=== PATIENT | female | born 1990 | race Caucasian/White ===

== ENCOUNTER 2017-12-06 10:45 | Outpatient (CLI) | payer OTHER ==
[~2017-12-06] VITALS: Ht 154.9 cm; Wt 84.1 kg
[2017-12-06 11:31] LABS: MICROSCOPIC NOT IND
[2017-12-06 11:34] VITALS: BP 127/7
[2017-12-06] MEDS ORDERED: PREN1TAB10 PO (12:01)
== END 2017-12-06 12:17 | disposition home or self-care (01) ==
LOC: LDOP 10:45
PROVIDERS: ATTEND Obstetrics & Gynecology
DX: O26.892 Other specified pregnancy related conditions, second trimester (principal); R10.2 Pelvic and perineal pain; Z3A.27 27 weeks gestation of pregnancy
CPT/HCPCS: 59025; 81003; 87086; 99201; G0463

== ENCOUNTER 2018-03-05 16:24 | Inpatient (IN) | payer OTHER ==
[~2018-03-05] VITALS: Ht 157.5 cm; Wt 90.0 kg
[~2018-03-05 16:24] MED LIST: PREN1TAB10 PO
[2018-03-08] MEDS ORDERED: D5%-LACTATED RINGERS 1,000 ML IV SCH (06:11)
[2018-03-08] MEDS ORDERED: OXYTOCIN 30U/ 0.9% NaCL 500ML 500 ML IV ONE (06:11)
[2018-03-08] MEDS ORDERED: OXYTOCIN 30U/ 0.9% NaCL 500ML 500 ML IV PRN (06:11)
[2018-03-08] MEDS ORDERED: OXYTOCIN 30U/ 0.9% NaCL 500ML 500 ML ONE ×2 (06:12→21:23)
[2018-03-08] MEDS ORDERED: NEWBORN KIT ONE (06:12)
[2018-03-08] MEDS ORDERED: FENTANYL PF 100 MCG/2ML IV PRN (06:30)
[2018-03-08] MEDS ORDERED: SODIUM CHLORIDE FLUSH 10ML SYR IVF PRN (06:30)
[2018-03-08] MEDS ORDERED: ONDANSETRON 2MG/ML, 2ML IVPush PRN (06:30)
[2018-03-08 06:40] LABS: BASOPHILS # (AUTO) 0.02 x10^3/uL (0-0.1); BASOPHILS % (AUTO) 0 % (0-1); EOSINOPHILS # (AUTO) 0.09 x10^3/uL (0-0.4); EOSINOPHILS % (AUTO) 1 % (1-7); LYMPHOCYTES # (AUTO) 1.62 x10^3/uL (1-3.4); LYMPHOCYTES % (AUTO) 15 % (22-44); MD NO; MEAN CORPUSCULAR HEMOGLOBIN 29.7 pg (27.0-34.8); MEAN CORPUSCULAR HGB CONC 33.5 g/dL (32.4-35.8); MEAN CORPUSCULAR VOLUME 88.5 fL (80-100); MEAN PLATELET VOLUME 9.7 fL (7.4-10.4); MONOCYTES # (AUTO) 0.71 x10^3/uL (0.2-0.8); MONOCYTES % (AUTO) 6 % (2-9); NEUTROPHILS # (AUTO) 8.74 x10^3/uL (1.8-6.8); NEUTROPHILS % (AUTO) 78 % (42-75); PLATELET COUNT 228 x10^3/uL (130-400); RED BLOOD COUNT 4.03 x10^6/uL (3.82-5.3); RED CELL DISTRIBUTION WIDTH 14.4 % (9.6-15.2)
[2018-03-08] MEDS ORDERED: FENTANYL PF 100 MCG/2ML ONE ×2 (10:06→12:22)
[2018-03-08] MEDS: FENTANYL PF 100 MCG/2ML IVPush PRN ×2 (10:11→12:25)
[2018-03-08] MEDS ORDERED: FENTANYL/BUPIV./NS/PF 250 ML EPIDCONT SCH ×2 (12:18→13:16)
[2018-03-08] MEDS: LACTATED RINGERS 1,000 ML IV SCH ×2 (12:26→20:26)
[2018-03-08] MEDS ORDERED: PLEASE ENTER HEIGHT AND WEIGHT MC SCH (12:30)
[2018-03-08] MEDS ORDERED: LACTATED RINGERS 1,000 ML IV SCH (13:16)
[2018-03-08] MEDS ORDERED: FENTANYL PF 500 MCG, BUPIVACAINE/PF 0.5%, 30ML 62.5 ML in SODIUM CHLORIDE 0.9% 177.5 ML EPIDCONT SCH (13:30)
[2018-03-08] MEDS ORDERED: EPHEDRINE 50 MG/ML, 1ML IVPush PRN (13:30)
[2018-03-08] MEDS ORDERED: NALOXONE 0.4 MG/ML, 1ML IVPush PRN (13:30)
[2018-03-08] MEDS ORDERED: LIDOCAINE/PF 1%, 30ML ONE (20:39)
[2018-03-08] MEDS ORDERED: MISOPROSTOL 200 MCG TABLET ONE (20:40)
[2018-03-08] MEDS ORDERED: MISOPROSTOL 200 MCG TABLET PR PRN (21:00)
[2018-03-08] MEDS ORDERED: DOCUSATE 100 MG CAPSULE PO PRN (21:00)
[2018-03-08] MEDS ORDERED: OXYcodone/APAP 5/325MG TABLET ONE (21:07)
[2018-03-08] MEDS ORDERED: IBUPROFEN 600 MG TABLET ONE (21:07)
[2018-03-08] MEDS: OXYcodone/APAP 5/325MG TABLET PO PRN (21:11)
[2018-03-08] MEDS: IBUPROFEN 600 MG TABLET PO PRN (21:12)
[2018-03-08] MEDS: OXYTOCIN 30U/ 0.9% NaCL 500ML 500 ML IV SCH (21:33)
[2018-03-08 23:50] VITALS: BP 107/39
[2018-03-09] MEDS: OXYcodone/APAP 5/325MG TABLET PO PRN (02:21)
[2018-03-09] MEDS: LACTATED RINGERS 1,000 ML IV SCH (04:26)
[2018-03-09 05:10] VITALS: BP 104/66
[2018-03-09 05:28] LABS: BASOPHILS # (AUTO) 0.01 x10^3/uL (0-0.1); BASOPHILS % (AUTO) 0 % (0-1); EOSINOPHILS # (AUTO) 0.02 x10^3/uL (0-0.4); EOSINOPHILS % (AUTO) 0 % (1-7); LYMPHOCYTES # (AUTO) 1.12 x10^3/uL (1-3.4); LYMPHOCYTES % (AUTO) 9 % (22-44); MD NO; MEAN CORPUSCULAR HEMOGLOBIN 30.3 pg (27.0-34.8); MEAN PLATELET VOLUME 9.6 fL (7.4-10.4); MONOCYTES # (AUTO) 0.77 x10^3/uL (0.2-0.8); MONOCYTES % (AUTO) 6 % (2-9); NEUTROPHILS # (AUTO) 10.04 x10^3/uL (1.8-6.8); NEUTROPHILS % (AUTO) 84 % (42-75); PLATELET COUNT 170 x10^3/uL (130-400); RED BLOOD COUNT 2.99 x10^6/uL (3.82-5.3)
[2018-03-09] MEDS: OXYTOCIN 30U/ 0.9% NaCL 500ML 500 ML IV SCH ×2 (06:57→16:57)
[2018-03-09] MEDS: IBUPROFEN 600 MG TABLET PO PRN ×2 (08:18→14:56)
[2018-03-09 08:30] VITALS: BP 104/71
[2018-03-09] MEDS ORDERED: PRENATAL VIT/IRON/FA 1 EACH TABLET PO SCH (09:00)
[2018-03-09 14:50] VITALS: BP 102/66
[2018-03-09] MEDS ORDERED: [UNRECOGNIZED DRUG - OTHER] (21:00)
== END 2018-03-09 22:23 | disposition home or self-care (01) | DRG 807 ==
LOC: LDIP 03-08 06:08 → 2NW 03-08 23:41
PROVIDERS: ADMIT Obstetrics & Gynecology; ATTEND Obstetrics & Gynecology
PROC: 10E0XZZ Delivery of Products of Conception, External Approach (ICD-10-PCS; principal; 2018-03-08)
PROC: 10907ZC Drainage of Amniotic Fluid, Therapeutic from Products of Conception, Via Natural or Artificial Opening (ICD-10-PCS; 2018-03-08)
PROC: 3E0R3BZ Introduction of Anesthetic Agent into Spinal Canal, Percutaneous Approach (ICD-10-PCS; 2018-03-08)
PROC: 00HU33Z Insertion of Infusion Device into Spinal Canal, Percutaneous Approach (ICD-10-PCS; 2018-03-08)
PROC: 0W8NXZZ Division of Female Perineum, External Approach (ICD-10-PCS; 2018-03-08)
DX: O80 Encounter for full-term uncomplicated delivery (principal); Z37.0 Single live birth; Z83.3 Family history of diabetes mellitus; Z82.49 Family history of ischemic heart disease and other diseases of the circulatory system; Z90.49 Acquired absence of other specified parts of digestive tract; Z3A.39 39 weeks gestation of pregnancy
CPT/HCPCS: 36415; 85025; 86850; 86900; G0378; J3010; J3490; J2590; J7050; J7120